=== PATIENT | male | born 1950 | race Caucasian/White ===

== ENCOUNTER 2023-01-21 11:55 | Emergency (ER) | payer OTHER, MEDICARE ==
[2023-01-21 12:05] VITALS: BMI 25.8
[2023-01-21] MEDS: ALBUTEROL SO4 2.5/IPRATROPIUM 0.5 INH SOL 3 ML VIAL.NEB. NEB SCH ×4 (12:15→13:00)
[2023-01-21] MEDS ORDERED: methylPREDNISolone NA SUCC 125 MG/2 ML VIAL IVPB ONE (12:15)
[2023-01-21] MEDS ORDERED: ALBUTEROL SO4 2.5/IPRATROPIUM 0.5 INH SOL 3 ML VIAL.NEB. NEB ONE (12:38)
[2023-01-21] MEDS ORDERED: methylPREDNISolone NA SUCC 125 MG/2 ML VIAL ONE (12:38)
[2023-01-21 13:05] LABS: VENOUS BASE EXCESS -0.7 mmol/L (-2-2); VENOUS O2 SATURATION 15.2 % (70-80); VENOUS PCO2 61.9 mmHg (38-52); VENOUS PH 7.271 (7.310-7.410)
[2023-01-21 13:07] LABS: BASO % 0.2 % (0-2.0); HEMATOCRIT 43.7 % (35.4-49); HEMOGLOBIN 15.4 GM/dL (11.7-16.9); LYMPH % 13.3 % (8-40); MCH 33.5 pg (25.7-33.7); MCHC 35.1 g/dl (32.0-35.9); MEAN CELL VOLUME 95.5 fl (80-96); MEAN PLT VOLUME 8.9 fl (7.5-11.1); MONO % 9.9 % (3.8-10.2); NEUT % 76.6 % (42.8-82.8); PLATELET COUNT 128 10^3/uL (134-434); RBC 4.58 M/mm3 (4.00-5.60); RDW 14.3 % (11.9-15.9); WHITE BLOOD COUNT 6.8 K/mm3 (4.0-10.0)
[2023-01-21 13:14] LABS: INR 1.08 (0.83-1.09); PROTHROMBIN TIME (PATIENT) 12.5 SEC (9.7-13.0)
[2023-01-21 13:17] LABS: ACTIVATED PTT 38.6 SECONDS (25.2-36.5)
[2023-01-21 13:29] LABS: MAGNESIUM 2.3 mg/dL (1.8-2.4)
[2023-01-21 13:32] LABS: CREATININE 1.5 mg/dL (0.55-1.3)
[2023-01-21 13:33] LABS: BILIRUBIN,TOTAL 1.4 mg/dL (0.2-1); TOT PROT 6.7 g/dl (6.4-8.2)
[2023-01-21 13:37] LABS: N-TERMINAL BNP 351.4 pg/ml (5-125)
[2023-01-21] MEDS ORDERED: AZITHROMYCIN IVPB 500 MG in DEXTROSE 5%-WATER - 250 ML IVPB ONE (14:06)
[2023-01-21] MEDS ORDERED: LACTATED RINGERS SOLUTION 1000 ML INFUS.BAG IV ONE (14:13)
[2023-01-21] MEDS ORDERED: AZITHROMYCIN IVPB 500 MG/250 ML BAG IVPB ONE (14:27)
[2023-01-21 15:55] LABS: VENOUS BASE EXCESS -6.3 mmol/L (-2-2); VENOUS O2 SATURATION 18.4 % (70-80); VENOUS PCO2 50.7 mmHg (38-52); VENOUS PH 7.243 (7.310-7.410)
[2023-01-21 18:40] VITALS: BP 118/56; PULSE 78; RESP 16; TEMP 98
== END 2023-01-21 20:20 | disposition left against medical advice (07) ==
LOC: JER 11:55
PROC: 3E03329 Introduction of Other Anti-infective into Peripheral Vein, Percutaneous Approach (ICD-10-PCS; principal; 2023-01-21)
PROC: 3E033GC Introduction of Other Therapeutic Substance into Peripheral Vein, Percutaneous Approach (ICD-10-PCS; 2023-01-21)
PROC: 3E0F7GC Introduction of Other Therapeutic Substance into Respiratory Tract, Via Natural or Artificial Opening (ICD-10-PCS; 2023-01-21)
DX: J44.9 Chronic obstructive pulmonary disease, unspecified (principal); R06.02 Shortness of breath; R06.03 Acute respiratory distress; R68.83 Chills (without fever); R05.9 Cough, unspecified; F17.210 Nicotine dependence, cigarettes, uncomplicated; Z20.822 Contact with and (suspected) exposure to COVID-19
CPT/HCPCS: 0241U-QW; 36415; 71045-TC-FY; 74177-TC; 80053; 82803; 83605; 83690; 83735; 83880; 84484; 85025; 85610; 85730; 87040; 93005; 93010; 99285-25